=== PATIENT | female | born 1985 | race Hispanic/Latino ===

== ENCOUNTER 2016-09-21 14:51 | Emergency (ER) | payer OTHER ==
[~2016-09-21] VITALS: Ht 160 cm; Wt 57.6 kg
[~2016-09-21 14:51] MED LIST: IBUPROFEN800 M1 PO; MOBIC 15MG15 MG PO
[2016-09-21 15:09] VITALS: BP 114/74
--- NOTE | 2016-09-21 16:05 | ED HAND/WRIST INJURY COMPLAINT ---
History of Present Illness General Chief Complaint: Hand or Wrist Injury Stated Complaint: LFT WRIST [AIN X 1WK Source: patient Exam Limitations: no limitations Vital Signs & Intake/Output Vital Signs & Intake/Output Vital Signs Date Time Temp Pulse Resp B/P Pulse O2 O2 Flow FiO2 Ox Delivery Rate 09/21 1509 97.6 74 16 114/74 100 Room Air Allergies Coded Allergies: NO KNOWN ALLERGIES (01/27/12) Reconcile Medications Diclofenac Sodium 75 MG TABLET.DR 1 TAB PO BID PRN pain/inflammation Ibuprofen 800 MG TABLET 1 TAB PO TID PRN PAIN Meloxicam (Mobic 15MG) 15 MG TAB 1 TAB PO DAILY PRN PAIN/INFLAMMATION Triage Note: PT TO ED FOR INTERMITTENT L WRIST PAIN WHEN SHE WAKES UP IN THE AM, NO KNOWN INJURY OR TRAUMA. NO PAIN. CURRENTLY PAIN FREE. NO DEFORMITY, +PULSES, NORMAL ROM. Triage Nurses Notes Reviewed? yes : No Patient currently breastfeeds: No HPI: Patient is a 31-year-old female presents complaining of left wrist pain intermittent times one week. Pain is greatest in the morning, occasionally radiates into her left middle or ring finger. Pain is currently 0 out of 10. Patient has not been taking any medication for symptoms. Patient has a history of carpal tunnel to her left wrist, reports that the sensation feels different. Denies numbness, weakness, recent trauma. (MONA AVELAR) Past History Travel History Traveled to [place] past 21 day No Medical History Any Pertinent Medical History? 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 No (MONA AVELAR) Review of Systems Review of Systems Constitutional: Reports: no symptoms. Cardiovascular: Denies: chest pain. GI: Denies: abdominal pain. Musculoskeletal: Reports: see HPI. Denies: back pain, neck pain. Skin: Reports: no symptoms. Neurological/Psychological: Denies: numbness, paresthesia. Hematologic/Endocrine: Denies: bruising, bleeding. Immunologic/Allergic: Denies: splenectomy. (MONA AVELAR) Physical Exam Physical Exam General Appearance: well developed/nourished, alert, awake Head: atraumatic, normal appearance Eyes: Bilateral: normal appearance, PERRL, EOMI. Ears, Nose, Throat: hearing grossly normal Neck: normal inspection, supple, full range of motion Cardiovascular/Respiratory: no respiratory distress Back: normal inspection, normal range of motion Wrist Left: negative Tinel's sign, negative Thayer's test. Mild tenderness to the anterior wrist. No bony tenderness. Full range of motion. Hand Left: normal inspection, normal range of motion Hand Right: normal inspection, normal range of motion Neurologic/Tendon: normal sensation, normal motor functions, normal tendon functions Skin: intact, normal color, warm/dry (MONA AVELAR) Progress Differential Diagnosis: carpal tunnel, tendinitis, sprain, fracture, arthritis, septic joint, avascular necrosis Plan of Care: Orders Procedure Date/time Status Durable Medical Equipment 09/22 1611 Active No fall or significant trauma reported. No bony tenderness on exam. X-rays deferred. Velcro wrist splint placed by nurse. Will treat conservatively and have patient follow-up with her primary doctor if no improvement. (MONA AVELAR) Departure Departure Time of Disposition: 1611 Disposition: HOME OR SELF CARE Condition: Stable Clinical Impression Primary Impression: Tendonitis of wrist, left Referrals: ISA VELASQUEZ MD (PCP/Family) Additional Instructions: Wear wrist splint for support. Follow-up with your primary doctor if no improvement within one week. Departure Forms: Customer Survey General Discharge Information Prescriptions: Current Visit Scripts Diclofenac Sodium 1 TAB PO BID PRN pain/inflammation #15 TAB (MONA AVELAR) PA/ADULT EDUCATION PROFESSIONAL Co-Sign Statement Statement: ED Attending supervision documentation- [] I saw and evaluated the patient. I have also reviewed all the pertinent lab results and diagnostic results. I agree with the findings and the plan of care as documented in the PA's/ADULT EDUCATION PROFESSIONAL's documentation. [X] I have reviewed the ED Record and agree with the PA's/ADULT EDUCATION PROFESSIONAL's documentation. [] Additions or exceptions (if any) to the PAs/ADULT EDUCATION PROFESSIONAL's note and plan are summarized below: [] (CLAUDE ROA,JOMAR Rico)
[2016-09-21] MEDS ORDERED: DICLOFENAC SODI75 M2 PO (16:13)
== END 2016-09-21 16:32 ==
LOC: ERH 14:51
DX: M77.8 Other enthesopathies, not elsewhere classified (principal)

== ENCOUNTER 2016-10-29 11:35 | Emergency (ER) | payer OTHER ==
[~2016-10-29] VITALS: Ht 160 cm; Wt 57.6 kg
[~2016-10-29 11:35] MED LIST changes: +DICLOFENAC SODI75 M2 PO
[2016-10-29 12:40] LABS: ABSOLUTE BASOPHIL COUNT 0 /CUMM (0.0-0.2); ABSOLUTE EOSINOPHIL COUNT 0.1 /CUMM (0.0-0.7); ABSOLUTE GRANULOCYTE CT 5.9 /CUMM (1.4-6.5); ABSOLUTE LYMPH COUNT 0.7 /CUMM (1.2-3.4); ABSOLUTE MONOCYTE COUNT 0.6 /CUMM (0.10-0.60); BASOPHIL % 0.3 % (0.0-2.0); EOSINOPHIL % 1.2 % (0-5); GRANULOCYTE % 80.6 % (42.2-75.2); HEMATOCRIT 37.8 % (37-47); MEAN CORPUSCULAR HGB 28.3 PG (27.0-31.0); MEAN CORPUSCULAR HGB CONC 34.2 G/DL (33.0-37.0); MEAN CORPUSCULAR VOLUME 82.8 FL (81.0-99.0); MEAN PLATELET VOLUME 6.8 FL (7.4-10.4); PLATELET COUNT 365 /CUMM (130-400); RBC DISTRIBUTION WIDTH 14.3 % (11.5-14.5); RED BLOOD CELL CT 4.57 /CUMM (4.20-5.40); WHITE BLOOD CELL COUNT 7.4 /CUMM (4.8-10.8)
--- NOTE | 2016-10-29 13:04 | ED HEADACHE COMPLAINT ---
History of Present Illness General Chief Complaint: Headache Stated Complaint: R SIDE HEADACHE Source: patient, old records Exam Limitations: no limitations Vital Signs & Intake/Output Vital Signs & Intake/Output Vital Signs Date Time Temp Pulse Resp B/P B/P Pulse O2 O2 Flow FiO2 Mean Ox Delivery Rate 10/29 1400 98.9 63 18 100/62 98 Room Air 10/29 1138 98.2 96 20 119/80 99 Room Air (DASHAWN DODSON MD) Allergies Coded Allergies: NO KNOWN ALLERGIES (01/27/12) Reconcile Medications No Known Home Medications Triage Note: PT TO ED C/O "ROCK BEEN HAVING PAIN IN MY [place]" X 2 MONTHS. HAS TRIED MOTRIN WITH NO RELIEF. STATES PAIN IS ON BOTH SIDES, BUT RIGHT IS WORSE THAN LEFT. Triage Nurses Notes Reviewed? yes Onset: 3 weeks Duration: week(s):, changing over time, continues in ED, intermittent Timing: recent history Quality/Severity: moderate, pressure, throbbing Head Injury Location: temporal Modifying Factors: Improves With: medication. LMP (ages 10-50): unknown : No Patient currently breastfeeds: No HPI: 3 weeks prior to admission patient complains of episodic right-sided temporal throbbing described as moderate to severe nonradiating improved with Motrin. She also complains sometimes it is bitemporal. Also complains of nasal congestion. She denies fever chills nausea vomiting diarrhea abdominal pain chest pain shortness of breath dysuria rash bleeding change in vision change in motor sensory function change in bowel bladder habit head injury. Past History Travel History Traveled to [place] past 21 day No Medical History Any Pertinent Medical History? 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 No Review of Systems Review of Systems Constitutional: Reports: no symptoms. Eyes: Reports: no symptoms. Ears, Nose, Throat, Mouth: Reports: no symptoms. Respiratory: Reports: no symptoms. Cardiovascular: Reports: no symptoms. Gastrointestinal/Abdominal: Reports: no symptoms. Genitourinary: Reports: no symptoms. Musculoskeletal: Reports: no symptoms. Skin: Reports: no symptoms. Neurological/Psychological: Reports: see HPI, anxiety, headache. Hematologic/Endocrine: Reports: no symptoms. Endocrine: Reports: no symptoms. Immunologic/Allergic: Reports: no symptoms. All Other Systems: Reviewed and Negative Physical Exam Physical Exam General Appearance: well developed/nourished, alert, awake, anxious, mild distress, thin Head: atraumatic, normal appearance Eyes: Bilateral: normal appearance, PERRL, EOMI. Ears, Nose, Throat: normal pharynx, normal ENT inspection, hearing grossly normal Neck: normal inspection, supple, full range of motion, trachea midline, no midline tenderness Respiratory: normal breath sounds, chest non-tender, no respiratory distress, quiet respiration, lungs clear Cardiovascular: regular rate/rhythm, normal peripheral pulses, norml femoral pulses equa Gastrointestinal: normal bowel sounds, soft, non-tender, no organomegaly Back: normal inspection, normal range of motion Extremities: normal inspection, normal capillary refill, normal range of motion, no edema Psychiatric: awake, alert, oriented x 3 Cranial Nerves: normal hearing, normal speech, PERRL Coordination/Gait: normal finger to nose, normal gait Motor/Sensory: no motor/sensory deficits Reflexes: 2+: bicep (R), bicep (L). Skin: intact, normal color, warm/dry Lymphatic: no anterior cervical indira Core Measures Severe Sepsis Present: No Septic Shock Present: No Progress Differential Diagnosis: cluster CARLOS, migraine CARLOS, tension CARLOS, temporal arteritis Plan of Care: Orders Procedure Date/time Status HUMAN BETA HCG SCREEN 10/29 121 Complete WESTERGREN SED RATE 10/29 121 Complete COMPREHENSIVE METABOLIC PANEL 10/29 121 Complete CBC WITHOUT DIFFERENTIAL 10/29 1217 Complete Current Medications Sig/David Start time Last Medication Dose Stop Time Status Admin Amoxicillin 750 MG ONCE ONE 10/29 1445 UNVr (Amoxil) 10/29 144 Oxymetazoline HCl 2 SPRAY ONCE ONE 10/29 1445 UNVr (Afrin) 10/29 1446 Laboratory Tests 10/29/16 1229: Anion Gap 12, Estimated GFR > 60, BUN/Creatinine Ratio 11.3, Glucose 92, Calcium 9.0, Total Bilirubin 0.4, AST 16, ALT 29, Alkaline Phosphatase 71, Total Protein 7.0, Albumin 4.3, Globulin 2.7, Albumin/Globulin Ratio 1.6, Total Beta HCG NEGATIVE, CBC w Diff NO MAN DIFF REQ, RBC 4.57, MCV 82.8, MCH 28.3, RDW 14.3, MPV 6.8 L, Gran % 80.6 H, Lymphocytes % 9.2 L, Monocytes % 8.7, Eosinophils % 1.2, Basophils % 0.3, Absolute Granulocytes 5.9, Absolute Lymphocytes 0.7 L, Absolute Monocytes 0.6, Absolute Eosinophils 0.1, Absolute Basophils 0, PUBS MCHC 34.2, ESR Westergren 5 Diagnostic Imaging: Viewed by Me: CT Scan. Discussed w/RAD: CT Scan. Radiology Impression: 1. No acute intracranial pathology. 2. There is mild right maxillary sinusitis. Departure Departure Time of Disposition: 1427 Disposition: HOME OR SELF CARE Condition: Stable Clinical Impression Primary Impression: Sinus headache Referrals: ISA VELASQUEZ MD (PCP/Family) Departure Forms: Customer Survey General Discharge Information Prescriptions: Current Visit Scripts No Known Home Medications
[2016-10-29 14:00] VITALS: BP 100/62
--- NOTE | 2016-10-29 14:15 | CT SCAN REPORT ---
EXAMINATION: CT HEAD WITHOUT CONTRAST CLINICAL INFORMATION: Right headache. COMPARISON: None. TECHNIQUE: Contiguous axial imaging was performed from the skull base to vertex without intravenous administration of contrast. DLP: 600.71 mGy-cm FINDINGS: There is no evidence of acute intracranial hemorrhage or territorial infarction. No abnormal mass effect or midline shift is seen. Barth to white matter differentiation is well preserved. No extra-axial fluid collections are identified. The ventricles are normal in size. There is no abnormal attenuation within the brain parenchyma. The osseous structures and soft tissues are normal. There is mild right mid maxillary sinusitis. The mastoid air cells are well-aerated. IMPRESSION: 1. No acute intracranial pathology. 2. There is mild right maxillary sinusitis.
[2016-10-29] MEDS ORDERED: AMOXICILLIN875 M1 PO (14:34)
[2016-10-29] MEDS ORDERED: IBUPROFEN600 M1 PO (14:34)
[2016-10-29] MEDS ORDERED: ULTRAM50 M1 PO (14:34)
== END 2016-10-29 14:48 ==
LOC: ERH 11:35
PROVIDERS: Emergency Medicine
DX: R51 Headache (principal)
CPT/HCPCS: 96374; 96375; J0131; J2765

== ENCOUNTER 2016-11-26 09:32 | Emergency (ER) | payer OTHER ==
[~2016-11-26] VITALS: Ht 160 cm; Wt 57.6 kg
[~2016-11-26 09:32] MED LIST changes: +AMOXICILLIN875 M1 PO; +IBUPROFEN600 M1 PO; +ULTRAM50 M1 PO
--- NOTE | 2016-11-26 10:54 | ED GENERAL ADULT ---
History of Present Illness General Chief Complaint: Headache Stated Complaint: CARLOS Source: patient Exam Limitations: no limitations Vital Signs & Intake/Output Vital Signs & Intake/Output Vital Signs Date Time Temp Pulse Resp B/P B/P Pulse O2 O2 Flow FiO2 Mean Ox Delivery Rate 11/26 1153 98.4 74 18 120/76 98 11/26 0938 98.3 77 20 115/78 98 Room Air Allergies Coded Allergies: NO KNOWN ALLERGIES (01/27/12) Reconcile Medications No Known Home Medications Triage Note: PT TO ED C/O HEADACHE. SEEN October FOR THE SAME. STATES SHE WAS SUPPOSED TO F/U WITH HER PCP, BUT HASN'T HAD TIME. PT STATES SHE WAS RX'D MEDS BUT "I'M ALL DONE WITH THEM, I HAVE BEEN IN PAIN ALL WEEK." Triage Nurses Notes Reviewed? yes Onset: Abrupt Duration: week(s): Timing: recent history : No Patient currently breastfeeds: No HPI: 11/26/16 31-year-old female presents to the emergency department complaining of headache. The patient states that she's had a bitemporal headache that's been ongoing for the past 3 months. She says it waxes and wanes in intensity. The onset of the symptoms of been abrupt, the duration has been months, severity significant; as her symptoms required her to come to the emergency department for care. She was seen in the emergency department earlier in the month and had a CT scan of the head and sinuses that revealed mild sinusitis and no other night abnormalities. She has been taking tramadol with only moderate relief. Past History Travel History Traveled to [place] past 21 day No Medical History Any Pertinent Medical History? 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 No Review of Systems Review of Systems Constitutional: Denies: fever. Respiratory: Reports: no symptoms. Cardiovascular: Reports: no symptoms. GI: Reports: no symptoms. Genitourinary: Reports: no symptoms. Musculoskeletal: Reports: no symptoms. Skin: Reports: no symptoms. Neurological/Psychological: Reports: headache. Hematologic/Endocrine: Reports: no symptoms. Immunologic/Allergic: Reports: no symptoms. Physical Exam Physical Exam General Appearance: well developed/nourished, alert, awake, anxious, mild distress Head: atraumatic, normal appearance Eyes: Bilateral: normal appearance, PERRL, EOMI. Ears, Nose, Throat: normal pharynx, normal ENT inspection Neck: normal inspection, supple, full range of motion Respiratory: normal breath sounds, chest non-tender, no respiratory distress Cardiovascular: regular rate/rhythm Peripheral Pulses: 4+ radial (R), 4+ radial (L) Gastrointestinal: soft, non-tender Back: normal range of motion Extremities: normal inspection, normal range of motion Neurologic/Psych: no motor/sensory deficits, awake, alert, oriented x 3 Skin: intact, normal color, warm/dry Core Measures ACS in differential dx? No CVA/TIA Diagnosis: No Severe Sepsis Present: No Septic Shock Present: No Progress Differential Diagnoses I considered the following diagnoses in my evaluation of the patient: [Migraine, sinus headache, tension headache,] Plan of Care: Orders Procedure Date/time Status Saline Lock 11/26 1016 Active LYME TITRE 11/26 1016 Active Laboratory Tests 11/26/16 1030: Lyme Disease Antibody Pending Initial ED EKG: none Departure Departure Disposition: STILL A PATIENT Condition: Stable Clinical Impression Primary Impression: Migraine headache Referrals: ISA VELASQUEZ MD (PCP/Family) Departure Forms: Customer Survey General Discharge Information Prescriptions: Current Visit Scripts No Known Home Medications Comments CARLOS GONE The patient symptoms resolved with IV Toradol and IV Phenergan. She will follow up with [facility] this week. Critical Care Note Critical Care Note Critical Care Time: non-applicable Critical Care Note Critical Care Note Critical Care Time: non-applicable
[2016-11-26 11:53] VITALS: BP 120/76
== END 2016-11-26 12:00 ==
LOC: ERH 09:32
DX: G43.909 Migraine, unspecified, not intractable, without status migrainosus (principal)
CPT/HCPCS: 86618; 96361; 96374; 96375; J1885; J2550